=== PATIENT | male | born 1990 | race Caucasian/White ===

== ENCOUNTER 2016-05-31 11:57 | Emergency (ER) | payer MEDICAID ==
[~2016-05-31] VITALS: Ht 182.9 cm; Wt 95.3 kg
[2016-05-31 11:57] VITALS: BP 158/86; PULSE 96; RESP 19; TEMP 98.1; O2SAT 97
--- NOTE | 2016-05-31 11:57 | NUR ---
BROUGHT BACK TO BED #5 AND TRIAGED. REPORT GIVEN TO ECTOR
--- NOTE | 2016-05-31 11:57 | NUR ---
Pt report received from STACY Dumas. Pt c/o Abdominal pain radiating to Right side with N/V while at work today. No active vomiting at this time.
--- NOTE | 2016-05-31 12:05 | NUR ---
Dr. Nicolas at bedside to assess pt.
[2016-05-31] MEDS ORDERED: NACL 0.9% 1,000 ML IV ONE (12:18)
[2016-05-31] MEDS ORDERED: ONDANSETRON HCL 4 MG/2 ML VIAL IVP ONE (12:30)
[2016-05-31 13:32] LABS: BASOPHILS % (AUTO) 0.5 % (0.0-2.0); EOSINOPHILS # (AUTO) 0.1 K/uL (0.0-0.4); EOSINOPHILS % (AUTO) 0.6 % (0.0-4.0); HEMATOCRIT 40.2 % (36-54); HEMOGLOBIN 13.6 g/dL (14.0-18.0); LYMPHOCYTES # (AUTO) 1.5 K/uL (1.0-5.5); LYMPHOCYTES % (AUTO) 15.6 % (20.5-51.5); MEAN CORPUSCULAR HEMOGLOBIN 30 pg (27-31); MEAN CORPUSCULAR HGB CONC 34 % (32-36); MEAN CORPUSCULAR VOLUME 88 fL (79.0-98.0); MONOCYTES # (AUTO) 0.9 K/uL (0.0-1.0); MONOCYTES % (AUTO) 9.3 % (1.7-9.3); NEUTROPHILS # (AUTO) 6.8 K/uL (1.8-7.7); PLATELET COUNT (AUTO) 194 K/uL (130-430); RED BLOOD CELL COUNT(AUTO) 4.56 MIL/uL (4.2-6.2); RED CELL DISTRIBUTION WIDTH 13.3 % (9.0-15.0); WHITE BLOOD COUNT (AUTO) 9.3 K/uL (4.8-10.8)
[2016-05-31 13:35] LABS: CALCIUM 9.4 mg/dL (8.4-11.0); CREATININE 0.79 mg/dL (0.55-1.30); POTASSIUM 3.8 mmol/L (3.5-5.1)
[2016-05-31 13:39] LABS: BILIRUBIN,URINE NEGATIVE (NEGATIVE); BLOOD, URINE NEGATIVE (NEGATIVE); CLARITY/URINE CLEAR (CLEAR); COLOR,URINE YELLOW (YELLOW); GLUCOSE,URINE NEGATIVE (NEGATIVE); KETONES,URINE NEGATIVE (NEGATIVE); LEUKOCYTE ESTERASE ,URINE NEGATIVE (NEGATIVE); NITRITE, URINE NEGATIVE (NEGATIVE); PH,URINE 5.5 (5.0-8.0); PROTEIN URINE NEGATIVE (NEGATIVE); UROBILINOGEN,URINE 0.2 (0.2-1.0)
[2016-05-31 13:40] LABS: ALBUMIN 4.4 g/dL (3.4-4.8); TOTAL BILIRUBIN 0.6 mg/dL (0.0-1.0)
[2016-05-31 14:20] VITALS: BP 142/82; PULSE 96; RESP 19; TEMP 98.1; O2SAT 97
--- NOTE | 2016-05-31 14:20 | NUR ---
Patient given written and verbal discharge instructions and verbalizes understanding. ER MD discussed with patient the results and treatment provided. Patient in stable condition. ID arm band removed. IV catheter removed intact and dressing applied, no active bleeding. Rx of cipro and ibuprofen given. Patient educated on pain management and to follow up with PMD. Pain Scale 0/10. Opportunity for questions provided and answered.
== END 2016-05-31 14:20 | disposition home or self-care (01) ==
LOC: SED 11:57
DX: K80.50 Calculus of bile duct without cholangitis or cholecystitis without obstruction (principal)
CPT/HCPCS: 36415; 76700; 80053; 81003; 83690; 85025; 85610; 85730; 96374; 99285; J2405; J7030

== ENCOUNTER 2016-12-02 21:04 | Emergency (ER) | payer MEDICAID ==
[~2016-12-02] VITALS: Ht 180.3 cm; Wt 99.8 kg
[2016-12-02 21:07] VITALS: BP_SYST 131
== END 2016-12-02 21:30 | disposition home or self-care (01) ==
LOC: SED 21:04
DX: S05.02XA Injury of conjunctiva and corneal abrasion without foreign body, left eye, initial encounter (principal); R03.0 Elevated blood-pressure reading, without diagnosis of hypertension; X58.XXXA Exposure to other specified factors, initial encounter; Y93.89 Activity, other specified; Y92.89 Other specified places as the place of occurrence of the external cause; Y99.8 Other external cause status
CPT/HCPCS: 99283

== ENCOUNTER 2017-01-18 17:05 | Inpatient (IN) | payer SELFPAY ==
[~2017-01-18] VITALS: Ht 180.3 cm; Wt 89.4 kg
[2017-01-18 17:25] VITALS: BP 131/88; PULSE 131; RESP 18; TEMP 98.3; O2SAT 99
--- NOTE | 2017-01-18 17:40 | NUR ---
Placed in room 02 . Placed on vehicle monitor technician, blood pressure machine and pulse oximeter. To gown for exam. Side rails up.
--- NOTE | 2017-01-18 17:42 | NUR ---
Pt brought by friend, Delta&Ox[employer], pt present to ER with N/V abd pain, states he consumed cocaine on tuesday and has been sick since than, tachycardic, afebrile, mattie ctive vomiting noted, cap refill <3,follows commands.
--- NOTE | 2017-01-18 17:45 | NUR ---
Dr Aguirre at bedside examining patient
[2017-01-18] MEDS ORDERED: NACL 0.9% 1,000 ML IV ONE (18:07)
[2017-01-18] MEDS ORDERED: ONDANSETRON HCL 4 MG/2 ML VIAL IVP ONE (18:15)
[2017-01-18 18:44] LABS: HEMATOCRIT 53.8 % (36-54); HEMOGLOBIN 17.7 g/dL (14.0-18.0); MEAN CORPUSCULAR HEMOGLOBIN 30 pg (27-31); MEAN CORPUSCULAR HGB CONC 33 % (32-36); MEAN CORPUSCULAR VOLUME 91 fL (79.0-98.0); PLATELET COUNT (AUTO) 312 K/uL (130-430); RED BLOOD CELL COUNT(AUTO) 5.94 MIL/uL (4.2-6.2); RED CELL DISTRIBUTION WIDTH 13.4 % (9.0-15.0)
[2017-01-18 18:55] LABS: CALCIUM 11.1 mg/dL (8.4-11.0); CREATININE 2.48 mg/dL (0.55-1.30); POTASSIUM 4.3 mmol/L (3.5-5.1)
--- NOTE | 2017-01-18 19:00 | NUR ---
Pt VSS, follows commands, afebrile, no active vomiting noted,respirations even and unlabored.
[2017-01-18 19:13] LABS: ATYPICAL LYMPHOCYTES % 4 % (0-0); BAND % (MANUAL) 23 % (0-6); EOSINOPHILS % (MANUAL) 0 % (0-7); LYMPHOCYTES % (MANUAL) 8 % (20-46); MONOCYTES % (MANUAL) 3 % (0-11)
[2017-01-18 19:14] LABS: BASOPHILS % (MANUAL) 0 % (0-2); METAMYELOCYTES % 2 % (0-0); MYELOCYTES % 1 % (0-0)
[2017-01-18 19:16] LABS: ALBUMIN 5.5 g/dL (3.4-4.8); TOTAL BILIRUBIN 1.6 mg/dL (0.0-1.0)
[2017-01-18 20:05] LABS: BILIRUBIN,URINE 2+ (NEGATIVE); CLARITY/URINE HAZY (CLEAR); COLOR,URINE AMBER (YELLOW); GLUCOSE,URINE NEGATIVE (NEGATIVE); KETONES,URINE 2+ (NEGATIVE); LEUKOCYTE ESTERASE ,URINE NEGATIVE (NEGATIVE); NITRITE, URINE NEGATIVE (NEGATIVE); PH,URINE 5.5 (5.0-8.0); PROTEIN URINE 2+ (NEGATIVE)
[2017-01-18 20:08] LABS: BLOOD, URINE TRACE (NEGATIVE)
[2017-01-18 20:11] LABS: BARBITURATE, URINE NEGATIVE (NEG <=200); BENZODIAZEPINE, URINE NEGATIVE (NEG <=150); CANNABINOID, URINE POSITIVE (NEG <=50); COCAINE, URINE POSITIVE (NEG <=150); METHAMPHETAMINES SCREEN,URINE POSITIVE (NEG <=500); OPIATE, URINE NEGATIVE (NEG <=100); PHENCYCLIDINE SCREEN,URINE NEGATIVE (NEG <=25); UR TRICYCLIC ANTIDEPRESSANTS NEGATIVE (NEG <=300); URINE AMPHETAMINE POSITIVE (NEG <=500); URINE METHADONE NEGATIVE (NEG <=200); URINE OXYCODONE SCREEN NEGATIVE (NEG <=100); URINE PROPOXYPHENE SCREEN NEGATIVE (NEG <=300)
[2017-01-18 20:29] LABS: BACTERIA,URINE MODERATE /HPF (None Seen); MUCUS,URINE 2+ /LPF (None Seen); RBC,URINE NONE SEEN /HPF (0-3)
[2017-01-18 20:30] LABS: HYALINE CASTS, URINE 70-100 /LPF (None Seen)
--- NOTE | 2017-01-18 20:51 | NUR ---
ADMISSION NOTE Received patient from ER via krys, received report from STACY marshall. Patient admitted with diagnosis of Chest pain. Patient oriented to hospital routine, call light, toileting and safety-patient verbalized understanding.
--- NOTE | 2017-01-18 21:00 | NUR ---
Patient will be admitted to care of Dr Welch . Admitted to Tele unit. Will go to room 100B . Belongings list completed. Summary report printed. Report will be given at bedside.
[2017-01-18 21:01] VITALS: BP 161/91; PULSE 103; RESP 19; TEMP 98.9
--- NOTE | 2017-01-18 21:05 | NUR ---
ROUNDS PATIENT IN BED, AWAKE, ALERT, ORIENTED, NOT IN DISTRESS, VITALS STABLE. DENIES ANY PAIN AND DISCOMFORT AT THIS TIME. ADMISSION ASSESSMENT DONE AND DOCUMENTED. SEE FLOWSHEET. ORIENTED TO HIS ROOM, PHONE, TV AND CALL LIGHT. NEEDS ATTENDED TO. SAFETY AND FALL MEASURES IN PLACED . CALL LIGHT PLACED WITHIN REACH.
[2017-01-18] MEDS ORDERED: FLU VACC QS 2017-18(36MOS+)/PF 0.5 ML/SYR SYRINGE I.M. PRN (21:15)
[2017-01-18] MEDS ORDERED: LORazepam 1 MG TABLET PO ONE (21:30)
[2017-01-18] MEDS ORDERED: NITROGLYCERIN 1 INCH (GM) OINT. TP SCH (21:30)
[2017-01-18] MEDS: FAMOTIDINE 20 MG TABLET PO SCH (21:50)
[2017-01-18] MEDS: ASPIRIN 81 MG TABLET(ECOTRIN) PO SCH (21:50)
[2017-01-18] MEDS: D5/0.45 NS 1,000 ML IV SCH (22:04)
[2017-01-18 23:55] VITALS: BP 114/67; PULSE 100; RESP 20; TEMP 98; O2SAT 96
[2017-01-18 23:57] VITALS: BP 139/82; PULSE 109; RESP 18; TEMP 98; O2SAT 96
--- NOTE | 2017-01-19 | NUR ---
PATIENT RESTING: Patient resting quietly. No acute distress noted. Vital signs within normal range.
--- NOTE | 2017-01-19 02:10 | NUR ---
ROUNDS PATIENT ASLEEP, NO SOB NOTED, WILL CONTINUE TO MONITOR.
--- NOTE | 2017-01-19 04:07 | NUR ---
CONSULT CONSULT CALLED FOR DR. FALCON I SPOKE WITH MOHSEN MOSER REASON FOR CONSULT: ELEVATED TROPONIN NUMBER I CALLED [phone] REQUESTING; DR. BROWNING
--- NOTE | 2017-01-19 04:20 | NUR ---
PATIENT RESTING: Patient resting quietly. No acute distress noted. Vital signs within normal range.
[2017-01-19 04:34] VITALS: BP 109/68; PULSE 80; RESP 20; TEMP 98.1; O2SAT 100
[2017-01-19 04:35] VITALS: BP 124/60; PULSE 86; RESP 18; TEMP 96.6; O2SAT 100
--- NOTE | 2017-01-19 06:27 | NUR ---
CLOSING NOTES PATIENT AWAKE, VITALS STABLE, NO PAIN AND DISCOMFORT AT THIS TIME. ALL NEEDS ATTENDED TO. SAFETY MEASURES MAINTAINED. CALL LIGHT PLACED WITHIN REACH.
[2017-01-19 07:22] LABS: BASOPHILS # (AUTO) 0.1 K/uL (0.0-0.2); BASOPHILS % (AUTO) 0.6 % (0.0-2.0); EOSINOPHILS # (AUTO) 0.2 K/uL (0.0-0.4); EOSINOPHILS % (AUTO) 2.1 % (0.0-4.0); HEMATOCRIT 46.6 % (36-54); HEMOGLOBIN 15.2 g/dL (14.0-18.0); LYMPHOCYTES # (AUTO) 2.6 K/uL (1.0-5.5); LYMPHOCYTES % (AUTO) 24.5 % (20.5-51.5); MEAN CORPUSCULAR HEMOGLOBIN 30 pg (27-31); MEAN CORPUSCULAR HGB CONC 33 % (32-36); MEAN CORPUSCULAR VOLUME 92 fL (79.0-98.0); MONOCYTES # (AUTO) 1.3 K/uL (0.0-1.0); MONOCYTES % (AUTO) 12.3 % (1.7-9.3); NEUTROPHILS # (AUTO) 6.2 K/uL (1.8-7.7); NEUTROPHILS % (AUTO) 60.5 % (40.0-70.0); PLATELET COUNT (AUTO) 254 K/uL (130-430); RED BLOOD CELL COUNT(AUTO) 5.06 MIL/uL (4.2-6.2); RED CELL DISTRIBUTION WIDTH 13.1 % (9.0-15.0)
[2017-01-19 07:24] LABS: WHITE BLOOD COUNT (AUTO) 10.4 K/uL (4.8-10.8)
[2017-01-19 07:40] LABS: CALCIUM 9.6 mg/dL (8.4-11.0); CREATININE 1.43 mg/dL (0.55-1.30); POTASSIUM 3.2 mmol/L (3.5-5.1); TOTAL BILIRUBIN 1.4 mg/dL (0.0-1.0)
--- NOTE | 2017-01-19 08:00 | NUR ---
AM Initial Notes Pt aaox4 with no complaints of abdominal pain or chest pain. No distress noted. youth nutritional monitor in place. IV to left ac #[id number] patent with IV fluid infusing. Educated about fall and safety precautions. Encouraged to call for assistance. Call light within reach. Will monitor.
[2017-01-19 08:07] LABS: THYROID STIMULATING HORMONE 0.68 uIu/mL (0.34-4.82)
[2017-01-19 08:31] VITALS: BP 117/73; PULSE 79; RESP 18; TEMP 97.4; O2SAT 100
[2017-01-19] MEDS: FAMOTIDINE 20 MG TABLET PO SCH (08:51)
[2017-01-19] MEDS: ASPIRIN 81 MG TABLET(ECOTRIN) PO SCH (08:51)
--- NOTE | 2017-01-19 08:59 | NUR ---
0900 scheduled medications administered. K-Dur 30 meq administered for lab potassium level of 3.2.
[2017-01-19] MEDS ORDERED: POTASSIUM CHLORIDE 10 MEQ TAB.PRT.SR PO ONE (09:00)
[2017-01-19] MEDS: D5/0.45 NS 1,000 ML IV SCH ×2 (10:26→20:08)
--- NOTE | 2017-01-19 11:04 | NUR ---
Rounds Pt awake resting in bed with no complaints of abdominal or chest pain. No distress noted. Kept comfortable. Encouraged to call for assistance. Call light within reach. Will monitor.
[2017-01-19 11:42] VITALS: BP 128/69; PULSE 81; RESP 18; TEMP 97.4; O2SAT 100
--- NOTE | 2017-01-19 13:31 | NUR ---
Rounds Pt awake resting in bed. No significant changes noted. Will continue to monitor.
[2017-01-19] MEDS ORDERED: cefTRIAXone 1 GM in D5W 50 ML IV SCH (15:00)
--- NOTE | 2017-01-19 16:00 | NUR ---
Rounds Pt awake resting in bed. No complaints of pain or discomfort. No distress noted. Encouraged to call for assistance. Will continue to monitor.
[2017-01-19 17:02] VITALS: BP 125/81; PULSE 71; RESP 17; TEMP 98.8; O2SAT 98
[2017-01-19] MEDS ORDERED: LORazepam 1 MG TABLET PO PRN (17:30)
--- NOTE | 2017-01-19 18:30 | NUR ---
Closing notes Pt awake resting in bed. No significant changes noted. Encouraged to call for assistance. Will endorse care to incoming nurse.
--- NOTE | 2017-01-19 19:45 | NUR ---
Initial Notes Patient alert and oriented, able to make needs known. Patient denies pain at this time. No SOB noted, on room air. Denies nausea/vomiting at this time. IV site patent, flushes well, infusing fluids as ordered. Patient independent with bed mobility and mobility. Goal of pain management, GI stability and safety this shift. Call light within reach. Will continue to monitor.
[2017-01-19 20:08] VITALS: BP 117/69; PULSE 71; RESP 18; TEMP 97; O2SAT 99
--- NOTE | 2017-01-19 22:00 | NUR ---
Notes Patient resting in bed. Denies pain at this time. No SOB noted. IV site patent, flushes well, infusing as ordered. Call light within reach. Will continue to monitor.
[2017-01-20 00:02] VITALS: BP 111/62; PULSE 57; RESP 17; TEMP 97.3; O2SAT 100
--- NOTE | 2017-01-20 00:20 | NUR ---
Notes Patient sleeping at this time. No s/s of pain noted. IV site patent, flushes well. Afebrile. Call light within reach. Will continue to monitor.
[2017-01-20] MEDS: D5/0.45 NS 1,000 ML IV SCH (03:09)
--- NOTE | 2017-01-20 04:05 | NUR ---
Notes Patient sleeping at this time. No s/s of pain noted. IV site patent, flushes well. Afebrile. Call light within reach. Will continue to monitor.
[2017-01-20 04:16] VITALS: BP 110/61; PULSE 59; RESP 18; TEMP 97.2; O2SAT 97
--- NOTE | 2017-01-20 06:29 | NUR ---
Closing Notes Patient denies pain at this time. No SOB noted, on room air. Denies nausea/vomiting at this time. IV site patent, flushes well, infusing fluids as ordered. Goal of pain management, GI stability and safety met. Call light within reach. Will continue to monitor.
[2017-01-20 06:40] LABS: BASOPHILS % (AUTO) 0.5 % (0.0-2.0); EOSINOPHILS # (AUTO) 0.3 K/uL (0.0-0.4); EOSINOPHILS % (AUTO) 4.2 % (0.0-4.0); HEMATOCRIT 42.3 % (36-54); HEMOGLOBIN 14.1 g/dL (14.0-18.0); LYMPHOCYTES # (AUTO) 2.4 K/uL (1.0-5.5); LYMPHOCYTES % (AUTO) 33.1 % (20.5-51.5); MEAN CORPUSCULAR HEMOGLOBIN 31 pg (27-31); MEAN CORPUSCULAR HGB CONC 33 % (32-36); MEAN CORPUSCULAR VOLUME 92 fL (79.0-98.0); MONOCYTES # (AUTO) 0.7 K/uL (0.0-1.0); MONOCYTES % (AUTO) 9.5 % (1.7-9.3); NEUTROPHILS # (AUTO) 3.8 K/uL (1.8-7.7); NEUTROPHILS % (AUTO) 52.7 % (40.0-70.0); PLATELET COUNT (AUTO) 214 K/uL (130-430); RED BLOOD CELL COUNT(AUTO) 4.61 MIL/uL (4.2-6.2); WHITE BLOOD COUNT (AUTO) 7.2 K/uL (4.8-10.8)
[2017-01-20 06:42] LABS: ANION GAP 9 (5-15); CALCIUM 8.6 mg/dL (8.4-11.0); CHLORIDE 106 mmol/L (98-107); CREATININE 0.88 mg/dL (0.55-1.30); GLUCOSE 112 mg/dL (70-99); POTASSIUM 3.5 mmol/L (3.5-5.1); SODIUM SERUM 142 mmol/L (136-145); UREA NITROGEN, BLOOD 14 mg/dL (8-21)
[2017-01-20 06:58] LABS: ALANINE AMINOTRANSFERASE 38 U/L (12-78); ALBUMIN 3.5 g/dL (3.4-4.8); ASPARTATE AMINOTRANSFERASE 34 U/L (10-37); THYROID STIMULATING HORMONE 0.66 uIu/mL (0.36-3.74); TOTAL BILIRUBIN 0.5 mg/dL (0.0-1.0)
[2017-01-20 06:59] LABS: GFR AFRICAN AMERICAN 133 mL/min (>90)
[2017-01-20 08:00] VITALS: BP 109/60; PULSE 61; RESP 18; TEMP 97.1; O2SAT 100
--- NOTE | 2017-01-20 08:00 | NUR ---
note PT RESTING IN BED, STATES HE WILL EAT HIS BREAKFAST A LITTLE LATER. IVF'S INFUSING WELL THROUGH LEFT FOREARM IV SITE. NO SOB/RESP DISTRESS OR PAIN/DISCOMFORT NOTED. DENIES ANY N/V OR ABDOMINAL/CHEST PAIN AT THIS TIME. CALL LIGHT WITHIN REACH.
[2017-01-20] MEDS: FAMOTIDINE 20 MG TABLET PO SCH (08:36)
[2017-01-20] MEDS: ASPIRIN 81 MG TABLET(ECOTRIN) PO SCH (08:37)
[2017-01-20] MEDS ORDERED: THIAMINE HCL 100 MG TABLET PO SCH (09:00)
[2017-01-20] MEDS ORDERED: FOLIC ACID 1 MG TABLET PO SCH (09:00)
--- NOTE | 2017-01-20 10:53 | NUR ---
Social Service Note: Pt referred by social services specialist due to pt's substance use. BLOWER BLAST FURNACE met with pt at bedside. Pt states that he lives home with family. Pt reports that he started using drugs at 14 years of age. Pt states that at age 14 he went to rehab and after rehab had 7 years of sobriety. Pt states that he did have a relapse and then most recently has had 1 year of sobriety. Pt states that this slip up has been a wake up call and pt has a plan to maintain his sobriety again. Pt states that he attends NA meetings daily and use his sponsor and support group members. BLOWER [employer] FURNACE spoke with pt about his insurance status; pt states that he spoke with someone about his [employer] status and pt states that he makes too much money. BLOWER BLAST FURNACE provided pt with [facility] clinic list and prescription discount card. BLOWER BLAST FURNACE also provided pt with substance abuse treatment facilities should pt need more assistance maintaining his sobriety.
--- NOTE | 2017-01-20 11:00 | NUR ---
NOTE PT WAS SEEN AND ASSESSED BY DR FALCON AT 1045AM. PT STABLE TO BE DISCHARGED FROM CARDIAC POINT OF VIEW. IVF'S WERE SALINE LOCKED AT THIS TIME PER DR FALCON'S ORDER. NO NEEDS NOTED AT THIS TIME. CALL LIGHT WITHIN REACH. PT ENCOURAGED TO AMBULATE IN ROOM/HALLWAY AND TO TAKE DEEP BREATHS Q1' 10X WHILE AWAKE.
[2017-01-20 12:19] VITALS: BP 107/74; PULSE 60; RESP 16; TEMP 97; O2SAT 100
--- NOTE | 2017-01-20 12:25 | NUR ---
NOTE DR BROWNING ON THE FLOOR AND ASSESSMENT OF PATIENT COMPLETED. ORDERS BEING WRITTEN AT THIS TIME.
[2017-01-20] MEDS ORDERED: CIPR-172 PO (13:53)
[2017-01-20 13:59] VITALS: BP 113/62; PULSE 67; RESP 18; TEMP 97.5; O2SAT 100
--- NOTE | 2017-01-20 14:30 | NUR ---
note PT WAS GIVEN DISCHARGE INSTRUCTIONS AND PRESCRIPTIONS. PT'S TELE UNIT WAS DC'D AND RETURNED TO CAREER SERVICES DIRECTOR. PT'S LEFT HAND IV WAS DC'D AND SITE HAS NO SWELLING/REDNESS/BLEEDING/DRAINAGE NOTED. QUESTIONS/CONCERNS WERE ANSWERED AT THIS TIME. PT DENIES ANY SOB/RESP DISTRESS OR PAIN/DISCOMFORT NOTED. PT STABLE AT THIS TIME. PT OFF THE FLOOR AMBULATING TO ER TO GO HOME. PT CHECKED SIDE TABLE AND DRAWERS FOR BELONGINGS. ALL BELONGINGS WERE PACKED AND TAKEN BY PT HOME.
== END 2017-01-20 14:30 | disposition home or self-care (01) | DRG 683 ==
LOC: SED 17:05 → STU 20:58
PROVIDERS: ADMIT Internal Medicine; ATTEND Internal Medicine
DX: N17.9 Acute kidney failure, unspecified (principal); N39.0 Urinary tract infection, site not specified; E86.0 Dehydration; F14.90 Cocaine use, unspecified, uncomplicated; F17.210 Nicotine dependence, cigarettes, uncomplicated; F12.90 Cannabis use, unspecified, uncomplicated; F19.10 Other psychoactive substance abuse, uncomplicated
CPT/HCPCS: 36415; 71010; 76770; 80053; 80307; 81000-TC; 83605; 83690-TC; 83735-TC; 84443-TC; 84484; 85007; 85025; 85027; 85379; 87040-TC; 87086; 93005; 93306; 96361; 96374; 99285; J0696; J2405; J7060; Q2037

== ENCOUNTER 2019-03-15 16:52 | Emergency (ER) | payer OTHER ==
[~2019-03-15] VITALS: Ht 182.9 cm; Wt 99.8 kg
[2019-03-15 16:52] VITALS: BP_SYST 153
[~2019-03-15 16:52] MED LIST: CIPR-172 PO
--- NOTE | 2019-03-15 16:52 | NUR ---
BROUGHT BACK TO BED #8 AND TRIAGED .REPORT GIVEN TO WENDY
--- NOTE | 2019-03-15 16:57 | NUR ---
Patient is awake, alert, and oriented x4. Patient states he was helping out with Thanksgiving Dinner, cutting potatoes using a mandolin slicer. Patient presents with wound to left thumb, throbbing pain, small amount of bleeding, wound bed is beefy red.
--- NOTE | 2019-03-15 17:10 | NUR ---
ER Dr. Moncada at bedside examining patient.
[2019-03-15] MEDS ORDERED: BACITRACIN 1 GM OINT TP ONE (17:15)
[2019-03-15 17:29] VITALS: BP_SYST 153
--- NOTE | 2019-03-15 17:29 | NUR ---
Patient given written and verbal discharge instructions and verbalizes understanding. ER MD discussed with patient the results and treatment provided. Patient in stable condition. ID arm band removed. Rx of keflex given. Patient educated on pain management and to follow up with PMD. Pain Scale 6/10. Opportunity for questions provided and answered. Medication side effect fact sheet provided.
== END 2019-03-15 17:29 | disposition home or self-care (01) ==
LOC: SED 16:58
DX: S61.011A Laceration without foreign body of right thumb without damage to nail, initial encounter (principal); F17.210 Nicotine dependence, cigarettes, uncomplicated; F12.90 Cannabis use, unspecified, uncomplicated; Z71.6 Tobacco abuse counseling; W45.8XXA Other foreign body or object entering through skin, initial encounter; Y93.89 Activity, other specified; Y92.89 Other specified places as the place of occurrence of the external cause; Y99.8 Other external cause status
CPT/HCPCS: 99283